=== PATIENT | female | born 1990 | race Caucasian/White ===

== ENCOUNTER 2020-03-22 07:01 | Emergency (ER) | payer BC, OTHER, SELFPAY ==
[~2020-03-22] VITALS: Ht 172.7 cm; Wt 106.9 kg
[2020-03-22 07:03] VITALS: BP 113/79
--- NOTE | 2020-03-22 07:37 | NUR ---
PT HAS CO BILAT LOWER LEG SWELLING AND PAIN. CMS INTACT. DENIES CP, SOB OR COUGH PA AT BEDSIDE. PLAN FOR US.
[2020-03-22 07:56] LABS: BASOPHILS # (AUTO) 0.02 x10^3/uL (0-0.1); BASOPHILS % (AUTO) 0 % (0-1); EOSINOPHILS # (AUTO) 0.09 x10^3/uL (0-0.4); EOSINOPHILS % (AUTO) 1 % (1-7); LYMPHOCYTES # (AUTO) 1.53 x10^3/uL (1-3.4); LYMPHOCYTES % (AUTO) 18 % (22-44); MD NO; MEAN CORPUSCULAR HEMOGLOBIN 28.1 pg (27.0-34.8); MEAN CORPUSCULAR HGB CONC 32.7 g/dL (32.4-35.8); MEAN PLATELET VOLUME 8.7 fL (7.4-10.4); MONOCYTES # (AUTO) 0.55 x10^3/uL (0.2-0.8); MONOCYTES % (AUTO) 6 % (2-9); NEUTROPHILS % (AUTO) 74 % (42-75); PLATELET COUNT 260 x10^3/uL (130-400); RED BLOOD COUNT 4.71 x10^6/uL (3.82-5.3); RED CELL DISTRIBUTION WIDTH 14.2 % (9.6-15.2)
[2020-03-22] MEDS ORDERED: KETOROLAC 30 MG/1 ML ONE (07:58)
[2020-03-22] MEDS ORDERED: KETOROLAC 30 MG/1 ML IM ONE (08:00)
[2020-03-22 08:05] LABS: ALBUMIN 3.6 g/dL (3.4-5.0); ANION GAP 4 mmol/L (5-15); CALCIUM 9.1 mg/dL (8.5-10.1); CHLORIDE 108 mmol/L (98-107)
--- NOTE | 2020-03-22 08:05 | NUR ---
MEDICATED PER ORDERS FOR PAIN. US AT BEDSIDE
[2020-03-22 08:08] LABS: ALANINE AMINOTRANSFERASE 28 U/L (12-78); ALKALINE PHOSPHATASE 80 U/L (45-117); BILIRUBIN,TOTAL 0.5 mg/dL (0.2-1.0); CREATININE 1.07 mg/dL (0.55-1.02); TOTAL PROTEIN 6.7 g/dL (6.4-8.2)
--- NOTE | 2020-03-22 08:55 | NUR ---
Patient/Caregiver given discharge instructions and they have confirmed that they understand the instructions. Patient ambulatory with steady gait.
== END 2020-03-22 09:02 | disposition home or self-care (01) ==
LOC: ED 08:53
DX: I87.2 Venous insufficiency (chronic) (peripheral) (principal); I83.014 Varicose veins of right lower extremity with ulcer of heel and midfoot; I83.024 Varicose veins of left lower extremity with ulcer of heel and midfoot; R60.0 Localized edema
CPT/HCPCS: 36415; 80053; 84703; 85025; 93970; 96372; 99284; J1885